=== PATIENT | female | born 1990 | race Caucasian/White ===

== ENCOUNTER → 2025-03-11 14:15 | Outpatient (CLI) | payer OTHER, SELFPAY ==
--- NOTE | 2025-03-11 14:18 | DI.US.S_ITS ---
PROCEDURE: US PERIPH VENOUS LOW EXTREM LT INDICATIONS: Please evaluate for deep venous thrombosis. Swelling of the thigh. TECHNIQUE: Real-time imaging, as well as color and pulse Doppler interrogation, were performed of the lower extremity deep veins from the inguinal ligament to the popliteal fossa, with documentation of the visualized calf veins. COMPARISON: None. FINDINGS: The common femoral, femoral, popliteal, and the visualized calf veins are normally compressible, and free of intraluminal thrombus. Color and pulse Doppler demonstrate normal phasic intraluminal flow. There is normal augmentation response to distal compression maneuver. IMPRESSION: No findings of lower extremity deep venous thrombosis. Dictated by: Jorge Giles M.D. on 03/11/2025 at 13:45 Approved by: Jorge Giles M.D. on 03/11/2025 at 13:45
== END ==
PROVIDERS: Referring Provider Internal Medicine; Visit Provider Internal Medicine
DX: S79.922A Unspecified injury of left thigh, initial encounter (principal); X58.XXXA Exposure to other specified factors, initial encounter
CPT/HCPCS: 93971